=== PATIENT | male | born 1985 | race Caucasian/White ===

== ENCOUNTER 2023-09-12 06:08 | Day surgery (SDC) | payer OTHER, SELFPAY ==
[2023-09-12] VITALS (17 sets, daily range): BP systolic 123–180; BP diastolic 74–102; PULSE 66–98; RESP 12–20; TEMP 36.1–36.8; O2SAT 92–98; BMI 37.9
--- OUTSIDE RECORDS SUMMARY | 2023-09-12 06:14 | XMS_ITS | Clinical Summary ---
Author Name Unknown Organization [facility] Address [place], [place] [address] Care Team Providers Care Substation Designer Name Role Phone Ninoska Garcia Primary Care Provider [phone] Allergies No known active allergies Medications Medication Sig Dispensed Refills Start Date End Date Status atorvastatin (LIPITOR) 20 mg tabletIndications:M ixed hyperlipidemia Take 1 Tablet (20 mg) by mouth at bedtime. 90 tablet. 3 06/12/2021 Active cetirizine (ZyrTEC) 10 mg tabletIndications:A llergic rhinitis due to pollen, unspecified seasonality Take 1 Tablet (10 mg) by mouth once daily. 90 tablet. 3 06/12/2021 Active pantoprazole (PROTONIX) 40 mg delayed-release tabletIndications:U lcer of esophagus without bleeding Take 1 Tablet (40 mg) by mouth once daily. 90 tablet. 3 06/12/2021 Active CPAPIndications:CARLYN (obstructive sleep apnea),Fatigue, unspecified type CPAP machine for home use at pressure: 7.8-12 cmw , Heated humidifier x 1 q 5 yr, Humidifier chamber x 1 q 6 mo, nasal mask x1 q 3mos, with cushion x 2 q mo, Heated tubing x 1 q 3 mo, Headgear x 1 q 6 mo, Filters: Disposable x 2 q mo non-disposable filters x1 q 6mo, Length of Need: 99 months, Frequency of use: Daily 1 Each 11 04/09/2022 Active CPAPIndications:Obs tructive sleep apnea CPAP machine for home use at pressure: 7.8-12 cm, nasal mask x1/3month with nasal pillows x 2/mo; Length of Need: 99 months; Frequency of use: Daily 1 Each 0 04/27/2021 4 Discontinu ed(Reorder (E-cancel not sent)) celecoxib (CELEBREX) 200 mg capsuleIndications: Chronic foot pain, left Take 1 Capsule (200 mg) by mouth once daily with a meal. 90 capsule. 3 06/12/2021 4 Discontinu ed(*Patien t states no longer taking) pregabalin (LYRICA) 50 mg capsuleIndications: Restless legs syndrome Take 1 Capsule (50 mg) by mouth at bedtime. 90 capsule. 3 06/12/2021 4 Discontinu ed(*Patien t states no longer taking) Active Problems Problem Noted Date Diagnosed Date ADHD (attention deficit hype ractivity disorder), combined type 07/29/2021 Ventral hernia without obstruction or gangrene 1 08/15/2020 Obstructive sleep apnea 03/03/2019 Ulcer of esophagus without bleeding 01/22/2019 Tobacco use disorder 08/06/2018 Mixed hyperlipidemia 07/28/2017 HTN (hypertension) 04/07/2009 Overview: Updated by system to replace inactive record Dysthymic disorder 06/10/2007 Hematemesis with nausea Encounters Date Type Department Care Team Description 09/09/2023 Telephone [facility] [address] [place] [address] Jamari Mcguire DPM Surgery Scheduled (09/12/23) 09/03/2023 3:45 PM BOBCAT OPERATOR Office Visit [facility] [address] [place] [address] Jamari Mcguire DPM Consult (Left ankle injury ) 09/03/2023 Telephone [facility] [address] [place] [address] Jamari Mcguire DPM Appointment 09/02/2023 2:40 PM BOBCAT OPERATOR Office Visit [facility] [address] [place] [address] Fernando Israel MD Consult (Left ankle sprain -fell on ice 08/26/23) 09/02/2023 Travel 08/29/2023 12:53 PM BOBCAT OPERATOR - 08/29/2023 11:59 PM BOBCAT OPERATOR Hospital Encounter [facility] [address] [place] [address] Yudith Mayfield PA Acute left ankle pain; Moderate ankle sprain, left, sequela 08/28/2023 11:30 AM BOBCAT OPERATOR Office Visit [facility] [address] [place] [address] Yudith Mayfield PA Ankle Pain/problem (Fell 2 days ago as pain and swelling in left ankle/Pain 04/20) 08/28/2023 Travel 08/28/2023 Nurse Triage [facility] [address] [place] [address] Ninoska Garcia PA Ankle Injury 08/26/2023 7:19 PM BOBCAT OPERATOR - 08/26/2023 9:04 PM BOBCAT OPERATOR Emergency [facility] [address] [place] [address] Willie Perez PA Sprain of left ankle, unspecified ligament, initial encounter (Primary Dx) Discharge Disposition: Home Self Care 08/26/2023 Travel from Last 3 Months Immunizations Name Administration Dates Next Due DTP 06/12/1987,1985,1985 ,1985 HIB PRP-D (ProHIBIT) 11/19/1990 MMR 11/21/1997,11/19/1990,04/14/1987 ,10/03/1986 Oral Polio Vaccine 11/19/1990,06/12/1987, 986,1985 Td (Age >=7 Years) 11/21/1997 Family History Medical History Relation Name Comments Heart Disease Father Hypertension Father Cancer-pancreatic Mother Heart Disease Mother Hypertension Mother Relation Name Status Comments Father Mother Social History Tobacco Use Types Packs/Day Years Used Date Smoking Tobacco: Former Cigarettes 1 14 Smokeless Tobacco: Current Tobacco Cessation:Ready to Q uit: No; Counseling Given: Yes Comments:wants to quit 08/21/2009 Alcohol Use Standard Drinks/Week Comments Not Currently 0 (1 standard drink = 0.6 oz pur e alcohol) PHQ-2 Answer Date Recorded PHQ-2 TOTAL SCORE 0 05/29/2020 Social Connections Answer Date Recorded Frequency of Communication with Friends and Fami ly Not on file 12/09/2022 Financial Resource Strain Answer Date R ecorded Difficulty of Paying Living Expenses 3 11/29/2021 Difficulty of Paying Living Expenses Not on file 11/29/2021 Food Insecurity Answer Date Recorded Worried About Running Out of Food in the Last Ye ar 1 11/29/2021 Transportation Needs Answer Date Record ed Lack of Transportation (Medical) 1 11/29/2021 Housing Stability Answer Date Recorded Unable to Pay for Housing in the Last Year 1 11/29/2021 Sex and Gender Information Value Date Recorded Sex Assigned at Not on file Gender Identity Not on file Sexual Orientation Not on file Obstetrics History Last Filed Vital Signs Vital Sign Reading Time Taken Comments Blood Pressure 148/78 09/02/2023 3:29 PM BOBCAT OPERATOR Pulse 95 09/03/2023 3:59 PM BOBCAT OPERATOR Temperature 36.9 ??C (98.5 ??F) 08/26/2023 7:30 PM CS T Respiratory Rate 16 08/26/2023 7:30 PM BOBCAT OPERATOR Oxygen Saturation 98% 09/03/2023 3:59 PM BOBCAT OPERATOR Inhaled Oxygen Concentration - - Weight 122.5 kg (270 lb) 09/03/2023 3:59 PM BOBCAT OPERATOR Height 180.3 cm (5' 11) 09/03/2023 3:59 PM BOBCAT OPERATOR Body Mass Index 37.66 09/03/2023 3:59 PM BOBCAT OPERATOR Plan of Treatment Upcoming Encounters Date Type Department Care Team (Late st Contact Info) Description 09/12/2023 7:30 AM BOBCAT OPERATOR Office Visit [facility] [address] [phone] Jamari Mcguire DPM [address] [place] [address] 09/17/2023 10:45 AM BOBCAT OPERATOR Office Visit [facility] [address] [place] [address] Jamari Mcguire DPM [address] [place] [address] 10/01/2023 2:45 PM BOBCAT OPERATOR Office Visit [facility] [address] [place] [address] Jamari Mcguire DPM [address] [place] [address] Health Maintenance Due Date Last Done Comments COVID-19 vaccine series (#1) 1985 Tdap 1996 HIV for age 15-65 2000 Hepatitis C screening for age 18-79 2003 Tetanus booster 11/22/2007 11/21/1997 Depression screening for age 12+ 05/29/2021 05/29/2020, 01/22/2019, 01/19/2019, Additional history exists Influenza for age 9-49 04/11/2023 BMI (ht and wt on same day) for age 18+ 09/03/2024 09/03/2023, 07/17/2021, 05/29/2020, Additional history exists Lipids for age 35-44 06/12/2026 06/12/2021, 04/26/2019, 04/26/2019, Additional history exists Pneumococcal series for age 6-64 Aged Out No longer eligible based on patient's age to complete this topic Goals Goal Patient Goal Type Associated Problems Recent Progress Patient-Stated? Author High Priority Goal:?? Hero will be introduced to [facility] Care Management and verbalize understanding of services by 11/21/22 General Yes Trista Rodriguez, OPEN PIT QUARRY SUPERVISOR, ACM Note: As evidenced by: 1. Patient reported no current medical concerns that need follow up. a. Completed: 11/21/22 2. Patient reported understanding of medications and had no further questions or concerns. a. Completed: 11/21/22 3. Patient reports understanding of available services and how to access then if needed. CMR with PharmD: Declined at this time. RN follow up: Declined at this time. SW follow up: Declined at this time. Care Guide follow up: Declined at this time. Completed: 11/21/22 4. Patient was introduced to HCD and offered assistance with creation of HCD Completed: 11/21/22 5. Reviewed and reminded Patient on outstanding care gaps as identified in Patients chart. Health Maintenance Due Topic Date Due COVID-19 vaccine series (1) Never done Tdap Never done HIV for age 15-65 Never done Hepatitis C screening for age 18-79 Never done Tetanus booster 11/22/2007 Depression screening for age 12+ 05/29/2021 BMI (ht and wt on same day) for age 18+ 07/17/2022 Patient verbalized understanding of outstanding care gaps. Patient will formulate self care plan to address gaps. Completed: 11/21/22 Patient declined further outreach at this time. Date Goal Progress Update 11/21/22 Is goal still relevant? Yes. Is there progression towards goal? Yes- progress includes: Pt completed call with [facility] clinician Barrier(s): Yes. Barrier(s) identified: Pt declined additional [facility] support and services at this time Care Plan Modification(s)? Yes- Step completed, Goal activated, and Goal completed Procedures Procedure Name Priority Date/Time Associated Diagnosis Comments MR ANKLE LEFT WO KALIE 08/29/2023 1:35 PM BOBCAT OPERATOR Acute left ankle pain Moderate ankle sprain, left, sequela XR ANKLE 3 VIEWS LEFT STAT 08/26/2023 7:50 PM BOBCAT OPERATOR from Last 3 Months Results * MR ANKLE LEFT WO (08/29/2023 1:35 PM BOBCAT OPERATOR) Anatomical Region Laterality Modality ANKLE L Magnetic Resonan ce 08/29/2023 2:05 PM BOBCAT OPERATOR Impressions 08/29/2023 2:05 PM BOBCAT OPERATOR 1. Tearing of the anterior syndesmotic ligament and likely injury of the lower aspect of the interosseous membrane extending beyond the [id number]. Low-grade sprain of the posterior syndesmotic ligament with bone marrow contusion of the posterior malleolus the distal tibia. 2. More inferiorly, the lateral ankle ligamentous structures (ATFL, etc) and deltoid ligament are intact. 3. Sequelae of interosseous ligament sprain with partial effacement of sinus tarsi fat. 4. Chronic longitudinal split tearing of the peroneus brevis tendon. There is now anterior dislocation of the larger anterior moiety of the split tendon. Small amount peroneal tendon sheath fluid. 5. Soft tissue edema or hemorrhage. Dictated by Jorge Montes MD @ 08/29/2023 2:05:37 PM (Electronically Signed) Narrative 08/29/2023 2:05 PM BOBCAT OPERATOR For Patients: ??As a result of the Cures Act, medical imaging exams and procedure reports are released immediately into your electronic medical record. ??You may view this report before your referring provider. ??If you have questions, please contact your health care provider. HISTORY: Left ankle pain. Sprain. TECHNIQUE: Noncontrast MRI of the left ankle. COMPARISON: Radiographs 08/26/2023. MRI 04/22/2014. FINDINGS: Tendons: The posterior tibial tendon demonstrates mild tendinosis changes. There is a small amount of fluid within its tendon sheath. The flexor digitorum longus and flexor hallucis longus tendons are intact. The anterior extensor tendons are intact. Distal Achilles tendon is intact. There is anterior dislocation of the majority of the peroneus brevis tendon from the groove along the posterior aspect of the fibula. This is noted on axial PD fat-sat image #20 of series 4 and represents a new finding from the prior examination. A small portion of the tendon is appropriately located posterior to the fibula with findings of chronic longitudinal splitting. The peroneus longus tendon is intact. There is an accessory peroneus quartus muscle. Small amount of peroneal tendon sheath fluid is present. Accessory peroneus quartus muscle is present. Ligaments: The anterior syndesmotic ligament is torn. There is likely injury of the lower interosseous membrane. Low-grade sprain of the posterior syndesmotic ligament. The deltoid ligament appears intact. The lateral ankle ligamentous structures are intact. There is irregularity of the interosseous ligaments of the sinus tarsi reflecting sequelae of sprain with partial effacement of sinus tarsi fat. Calcaneonavicular spring ligament is intact. Joint spaces: Mild synovitis within the posterior aspect of the ankle joint space. The articular surfaces are maintained. Small posterior subtalar joint effusion. Subtalar articulations otherwise maintained. Talonavicular and calcaneocuboid articulations are maintained. Joint spaces within the midfoot and at the midfoot-forefoot junction are maintained. Bones and soft tissues: Bone marrow contusion of the posterior malleolus of the distal tibia. There is no acute fracture. Soft tissue edema or hemorrhage is present. The proximal plantar fascia is intact. No soft tissue mass. Procedure Note Jorge Montes MD - 08/29/2023 For Patients: As a result of the Cures Act, medical imagingexams and procedure reports are released immediately into your electronicmedical record. You may view this report before your referring provider.If you have questions, please contact your health care provider. HISTORY: Left ankle pain. Sprain. TECHNIQUE: Noncontrast MRI of the left ankle. COMPARISON: Radiographs 08/26/2023. MRI 04/22/2014. FINDINGS: Tendons: The posterior tibial tendon demonstrates mild tendinosis changes.There is a small amount of fluid within its tendon sheath. The flexordigitorum longus and flexor hallucis longus tendons are intact. Theanterior extensor tendons are intact. Distal Achilles tendon is intact.There is anterior dislocation of the majority of the peroneus brevistendon from the groove along the posterior aspect of the fibula. This isnoted on axial PD fat-sat image #20 of series 4 and represents a newfinding from the prior examination. A small portion of the tendon isappropriately located posterior to the fibula with findings of chroniclongitudinal splitting. The peroneus longus tendon is intact. There is anaccessory peroneus quartus muscle. Small amount of peroneal tendon sheathfluid is present. Accessory peroneus quartus muscle is present. Ligaments: The anterior syndesmotic ligament is torn. There is likelyinjury of the lower interosseous membrane. Low-grade sprain of theposterior syndesmotic ligament. The deltoid ligament appears intact. Thelateral ankle ligamentous structures are intact. There is irregularity ofthe interosseous ligaments of the sinus tarsi reflecting sequelae ofsprain with partial effacement of sinus tarsi fat. Calcaneonavicularspring ligament is intact. Joint spaces: Mild synovitis within the posterior aspect of the anklejoint space. The articular surfaces are maintained. Small posteriorsubtalar joint effusion. Subtalar articulations otherwise maintained.Talonavicular and calcaneocuboid articulations are maintained. Jointspaces within the midfoot and at the midfoot-forefoot junction aremaintained. Bones and soft tissues: Bone marrow contusion of the posterior malleolusof the distal tibia. There is no acute fracture. Soft tissue edema orhemorrhage is present. The proximal plantar fascia is intact. No softtissue mass. IMPRESSION: 1. Tearing of the anterior syndesmotic ligament and likely injury of thelower aspect of the interosseous membrane extending beyond [id number]. Low-grade sprain of the posterior syndesmotic ligament withbone marrow contusion of the posterior malleolus the distal tibia. 2. More inferiorly, the lateral ankle ligamentous structures (ATFL, etc)and deltoid ligament are intact. 3. Sequelae of interosseous ligament sprain with partial effacement ofsinus tarsi fat. 4. Chronic longitudinal split tearing of the peroneus brevis tendon. Thereis now anterior dislocation of the larger anterior moiety of the splittendon. Small amount peroneal tendon sheath fluid. 5. Soft tissue edema or hemorrhage. Dictated by Jorge Montes MD @ 08/29/2023 2:05:37 PM (Electronically Signed) Yudith BACK MR * XR ANKLE 3 VIEWS LEFT (08/26/2023 7:50 PM BOBCAT OPERATOR) Anatomical Region Laterality Modality ANKLES, ANKLE L Digital Radiogra phy 08/26/2023 8:31 PM BOBCAT OPERATOR Impressions 08/26/2023 8:31 PM BOBCAT OPERATOR Mild diffuse soft tissue edema without underlying fractures identified. No dislocation. Dictated by Lam Thayer MD @ 08/26/2023 8:31:34 PM (Electronically Signed) Narrative 08/26/2023 8:31 PM BOBCAT OPERATOR For Patients: ??As a result of the 21st Century Cures Act, medical imaging exams and procedure reports are released immediately into your electronic medical record. ??You may view this report before your referring provider. ??If you have questions, please contact your health care provider. INDICATION: Left ankle pain. TECHNIQUE: Left ankle radiographs, 3 views. COMPARISON: Left ankle MR 04/22/2014. FINDINGS: No acute fractures or dislocation. ??The joint spaces are preserved. Small calcaneal osteophytes. Boehler`s angle is preserved. The talar dome remains smooth. The ankle mortise joint space is preserved. Mild diffuse soft tissue edema. No radiopaque foreign bodies. Procedure Note Lam Thayer DO - 08/26/2023 For Patients: As a result of the Cures Act, medical imagingexams and procedure reports are released immediately into your electronicmedical record. You may view this report before your referring provider.If you have questions, please contact your health care provider. INDICATION: Left ankle pain. TECHNIQUE: Left ankle radiographs, 3 views. COMPARISON: Left ankle MR 04/22/2014. FINDINGS: No acute fractures or dislocation. The joint spaces are preserved. Smallcalcaneal osteophytes. Boehler`s angle is preserved. The talar domeremains smooth. The ankle mortise joint space is preserved. Mild diffusesoft tissue edema. No radiopaque foreign bodies. IMPRESSION: Mild diffuse soft tissue edema without underlying fractures identified. Nodislocation. Dictated by Lam Thayer MD @ 08/26/2023 8:31:34 PM (Electronically Signed) Willie BACK GENERAL [facility]USH[facility] from Last 3 Months Advance Directives Latest Code Status on File Code Status Date Activated Date Inactivated Comments Full Code 05/25/2015 8:28 AM 05/25/2015 12:56 PM Care Teams Substation Designer Relationship Specialty Start Date End Date Ninoska [place] [address] [place] [address] PCP - General Physician Advanced Manufacturing Engineer 08/26/23
[2023-09-12] MEDS: MIDAZOLAM HCL 1 MG/ML inj IVP (07:00)
[2023-09-12] MEDS: fentaNYL 100 MCG/2 ML inj IVP (07:00)
[2023-09-12] MEDS: LACTATED RINGERS 1000 ML 1,000 ML 100 ML IV ×2 (07:01→08:37)
[2023-09-12] MEDS: SODIUM CHLORIDE 0.9 % (FLUSH) 10 ML SYRINGE IVF (07:01)
--- NOTE | 2023-09-12 07:29 | SUR.PREOP ---
TIME?OUT:?0655, left ankle PT/RN/MDA?VERIFICATION?OF?SURGICAL?SITE,?PROCEDURE,?AND?CONSENT OBTAINED?PRIOR?TO?INVASIVE?PROCEDURE.
[2023-09-12] MEDS: CEFAZOLIN 2 GM INJ IVP (07:40)
--- NOTE | 2023-09-12 08:00 | CRLHL7_ITS ---
For Patients: As a result of the Cures Act, medical imaging exams and procedure reports are released immediately into your electronic medical record. You may view this report before your referring provider. If you have questions, please contact your health care provider. Indication: LEFT PERONEAL TENDON SUBLUXATION, REPAIR LEFT ANKLE SYNDESMOSIS Technique: Two fluoroscopic images of the left ankle. Fluoroscopic time 19.8 seconds. IMPRESSION: Fluoroscopic guidance for syndesmotic repair left ankle. Dictated by Manuel Guajardo MD @ 09/12/2023 11:41:02 AM (Electronically Signed)
[2023-09-12] MEDS: BUPIVACAINE 0.5% 30 ML INJECTION (09:50)
--- NOTE | 2023-09-12 10:07 | P.GSOP_ITS ---
Operative Note Date of procedure: 09/12/23 Pre-op diagnosis: 1. Peroneal tendon subluxation left 2. Ankle syndesmotic disruption left Post-op diagnosis: 1. Peroneal tendon subluxation left 2. Ankle syndesmotic disruption left Type of Procedure: 1. Peroneal tendon subluxation repair with fibular groove deepening left 2. Ankle syndesmotic disruption repair left Indications: Patient sustained an injury of the left ankle resulting in disruption of the ankle syndesmosis and subluxation of the peroneal tendons. Surgical intervention is necessary. I reviewed the procedure, recovery, expectation potential complications. These include but not limited to: Poor wound healing, infection, continued pain, potential need for future surgery, deep venous thrombosis, pulmonary embolism and . All questions answered written consent was obtained. Operative site marked. Procedure Description: After discussing the risks and benefits of the procedure, the patient signed informed consent.? Anesthesia performed a popliteal and adductor regional block. The patient was brought to the operating room and placed on the operating table in supine position.? Care was taken to pad the patient's pressure points.?? The patient was then intubated and by anesthesia.?? The operative site was then prepped and draped in the usual sterile fashion.? A time-out was then performed. Left limb was exsanguinated and the thigh tourniquet inflated to 250 mm Hg. Linear incision was made over the peroneal tendons starting proximal to the lateral malleolus extending distal to the lateral malleolus. Blunt dissection carried down to the peroneal tendon sheath and retinaculum. The peroneus brevis tendon was subluxed anterior to the lateral malleolus and the retinaculum was severely attenuated. The tendon sheath and retinaculum were then released along the course of the tendons. Peroneus longus tendon was identified and evaluated. There are no tears noted to this tendon. Peroneus brevis had no substantial tears but was flattened significantly. Had a very low lying muscle belly. Patient also had a accessory muscle consistent with a peroneus quartus muscle as well as a 2nd accessory muscle further distal and inferior. Both accessory muscles were excised and the peroneus brevis muscle belly debulked. Peroneus brevis tendon was then read to be arise to with 2-0 FiberWire. With dorsiflexion eversion of the foot the tendon continue to sublux easily. Peroneal groove was clearly not deep enough to contain the tendon. A guide pin from the tightrope set was place it is down the posterior fibula within the groove and then over drilled. A bone tamp was then used to collapse the tunnel and deepen the fibular groove. Periosteum and soft tissue remained intact over the bony area. We turned our attention to the syndesmotic repair. Guide pin was placed in the fibula terminal crossed the tibia. C-arm confirmed position. Guide pin was then overdrilled and removed the tight rope device placed through the osseous tunnel. Button deployed in the medial button flipped was appropriately positioned on the medial tibia without soft tissue impingement. With the ankle in dorsiflexion the tight rope tightened down appropriately. Second tightrope was placed proximal to the 1st using same standard technique. The 2 tight rope stay 1st anterior-posterior slightly. A 0.062 K-wire was used to create 4 holes along the ridge of the fibula on the lateral posterior aspect. 2. FiberWire was then passed through the retinaculum and then through the 1st drill hole. Was then passed back through the 2nd drill hole and through the retinaculum. Second FiberWire was passed in the same manner through the 3rd and 4th drill holes. Suture was then tensioned advancing the retinaculum onto the fibula in a tightened position. With range of motion of the ankle joint the peroneal tendons no longer sublux. The remainder of the retinaculum and peroneal tendon sheath was repaired with 3-0 Vicryl. Thorough irrigation with normal sterile saline performed. Subcutaneous tissues reapprox imated 4-0 Monocryl and skin closed with 4-0 Prolene. Additional 15 mL 0.5% Marcaine plain injected. Sterile dressings were then applied. Well-padded [id number]-[id number] plaster splint applied. ? The patient was then woken and transported to the recovery area in stable condition. The patient tolerated the procedure well. Findings: Hemostasis: Thigh tourniquet at 250 mm Hg Complications: None apparent Implants: Arthrex tight rope x2, Arthrex 2-0 FiberWire x1, Arthrex #2 FiberWire x2 Anesthesia: GETA, regional and local Surgeon: Jamari Mcguire DPM Estimated blood loss (mL): 5 Condition: stable Disposition: PACU
--- NOTE | 2023-09-12 10:29 | W.ANESCHARGE ---
Anesthesia Charges Start Date/Time Anesthesia Start Date: 09/12/23 Anesthesia Start Time: 07:34 Stop Date/Time Anesthesia Stop Date: 09/12/23 Anesthesia Stop Time: 10:09
--- NOTE | 2023-09-12 10:38 | W.PM.NB ---
Nerve Block Nerve Block Time Seen by Provider: 07:15 Date Seen: 09/12/23 Type of block requested by surgeon for post-operative analgesia: adductor canal Side: left Time out performed: Yes Verification of patient name: Yes Verification of date of : Yes Site marking: site marked Name of person performing procedure: Jayme Hinds Continuous monitoring Was continuous monitoring of O2 sat, B/P, playground monitor, recorded every 15 minutes?: Yes Procedure Checklist: sterile prep, needles and gloves Ultrasound guided. Images saved: Yes Medications given in 5ml increments after negative aspiration: Ropivicaine %: 0.5 mL: 15 Needle gauge: 20 Patient tolerated procedure well: Yes Additional comments: injected in 5ml increments after negative aspiration Block Charges Block Charge (with Pro Fee): Femoral Nerve Use of Ultrasound Machine for Block: Yes- US Guidance/pain block
--- NOTE | 2023-09-12 10:40 | W.PM.NB ---
Nerve Block Nerve Block Time Seen by Provider: 07:15 Date Seen: 09/12/23 Type of block requested by surgeon for post-operative analgesia: popliteal Side: left Time out performed: Yes Verification of patient name: Yes Verification of date of : Yes Site marking: site marked Name of person performing procedure: Jayme Hinds Continuous monitoring Was continuous monitoring of O2 sat, B/P, pvc monitor, recorded every 15 minutes?: Yes Procedure Checklist: sterile prep, needles and gloves Ultrasound guided. Images saved: Yes Medications given in 5ml increments after negative aspiration: Ropivicaine %: 0.5 mL: 15 Needle gauge: 20 Patient tolerated procedure well: Yes Additional comments: Injected in 5ml increments after negative aspiration Block Charges Block Charge (with Pro Fee): Sciatic Nerve Use of Ultrasound Machine for Block: Yes- US Guidance/pain block
[2023-09-12] MEDS: METOCLOPRAMIDE HCL 5 MG/ML INJ 10 MG IVP (10:56)
== END 2023-09-12 12:09 | disposition home or self-care (01) ==
PROVIDERS: PCP Physician Assistant; Visit Provider Podiatrist
PROC: (CPT 27675; principal; 2023-09-12 07:30)
DX: S86.392A Other injury of muscle(s) and tendon(s) of peroneal muscle group at lower leg level, left leg, initial encounter (principal); S93.432A Sprain of tibiofibular ligament of left ankle, initial encounter; S93.332A Other subluxation of left foot, initial encounter; G89.18 Other acute postprocedural pain
CPT/HCPCS: 27676; 27829; 01480; 64445; 64447; 73600; 76942; C1713; J0330; J0665; J0690; J1100; J2250; J2405; J2704; J2765; J2795; J3010; J7120